=== PATIENT | male | born 1960 | race Caucasian/White ===

== ENCOUNTER 2020-12-29 12:30 | Outpatient (REF) | payer OTHER, SELFPAY ==
[2020-12-29 14:06] LABS: Alanine Aminotransferase 35 U/L (0-40); Anion Gap 14 (12-20); Blood Urea Nitrogen 15 mg/dL (9-16); Carbon Dioxide 28 mmol/L (22-29); Chloride 104 mmol/L (96-108); Estimated Glomerular Filt Rate > 60; Potassium 4.4 mmol/L (3.3-5.1); Sodium 142 mmol/L (135-145)
== END 2020-12-29 12:31 | disposition home or self-care (01) ==
LOC: HO.LAB 12:30
PROVIDERS: PCP Family Medicine; Visit Provider Family Medicine
DX: I10 Essential (primary) hypertension (principal); E78.00 Pure hypercholesterolemia, unspecified; Z79.899 Other long term (current) drug therapy
CPT/HCPCS: 36415; 80051; 82550; 82565; 84460; 84520

== ENCOUNTER 2021-04-25 08:25 | Day surgery (SDC) | payer OTHER, SELFPAY ==
[2021-04-18 12:39] VITALS: BMI 31.3
--- NOTE | 2021-04-24 12:10 | P.CONAN_ITS ---
Documented by User: Paula Crowley 04/24/21 12:12 HPI - Anesthesia Eval Consult details Narrative: 60yo M for Colonoscopy [facility] Past Medical History Medical History HLD (hyperlipidemia) HTN (hypertension) Renal stones Surgical History Surgical History (Updated 04/25/21 @ 09:57 by Zandra Manning) H/O colonoscopy H/O lithotripsy Social History Social History Patient Tobacco Use Status: Never used Tobacco Use of substances other than those prescribed or required for medical reasons: Yes Are you DNR?: No Advance Directives: No Advance Directives Information Provided: Yes Meds Allergies Allergy/AdvReac Type Severity Reaction Status Date / Time No Known Allergies Allergy Verified 04/25/21 09:09 Home Medications Medication Instructions Recorded Confirmed Last Taken Type atorvastatin 20 mg tablet 1 tab PO BEDTIME 04/25/21 04/25/21 Unknown History bisoprolol 10 1 tab PO DAILY 04/25/21 04/25/21 04/24/21 07:30 History mg-hydrochlorothiazide 6.25 mg tablet cetirizine 10 mg tablet 1 tab PO DAILY 04/25/21 04/25/21 Unknown History Exam Exam Date and Time: April 24, 2021 1210 Height,Weight and Vital Signs: Height 5 ft 7 in Weight 90.718 kg Pertinent Lab Results Pertinent Lab Results: Laboratory Tests 12/29/20 12:45 Sodium 142 Potassium 4.4 Chloride 104 Carbon Dioxide 28 BUN 15 Creatinine 0.86 Assessment and Plan Assessment Anesthesia Assessment: Chart Reviewed Documented by User: Zandra Manning 04/25/21 09:59 HPI - Anesthesia Eval Consult details Narrative: 60 yo male patient for colonoscopy [facility] Past Medical History Medical History HLD (hyperlipidemia) HTN (hypertension) Renal stones Family History Family history of problems with anesthesia: No Surgical History Surgical History (Updated 04/25/21 @ 09:57 by Zandra Manning) H/O colonoscopy H/O lithotripsy History of Problems with Anesthesia: No Social History Social History Patient Tobacco Use Status: Never used Tobacco Use of substances other than those prescribed or required for medical reasons: Yes Are you DNR?: No Advance Directives: No Advance Directives Information Provided: Yes Meds Allergies Allergy/AdvReac Type Severity Reaction Status Date / Time No Known Allergies Allergy Verified 04/25/21 09:09 Home Medications Medication Instructions Recorded Confirmed Last Taken Type atorvastatin 20 mg tablet 1 tab PO BEDTIME 04/25/21 04/25/21 Unknown History bisoprolol 10 1 tab PO DAILY 04/25/21 04/25/21 04/24/21 07:30 History mg-hydrochlorothiazide 6.25 mg tablet cetirizine 10 mg tablet 1 tab PO DAILY 04/25/21 04/25/21 Unknown History Exam Height,Weight and Vital Signs: Vital Signs Temp Pulse Resp BP Pulse Ox 04/25/21 09:11 98.3 F 57 16 140/72 H 97 Airway Mallampati Class: III Neck ROM: Full Loose/Missing/Broken Teeth: No Heart: RRR Lungs: CTAB Assessment and Plan Final Anesthetic Review NPO: Yes ASA Class: II Final Preanesthetic Review: No Changes in Pt Med Stat, Meds/Allgs Chart Reviewed, Consent Obtained/Reviewed and Anes Risks/Benef Reviewed Patient Risk: Low Procedure Risk: Low Anesthetic Plan Anesthetic Plan: MAC: Disposition: Standard PACU
[2021-04-25 09:11] VITALS: BP 140/72; PULSE 57; RESP 16; TEMP 36.8; O2SAT 97; BMI 30.4
[2021-04-25] MEDS: Lactated Ringers 1,000 ML 100 ML IVCONT (09:27)
[2021-04-25 11:41] VITALS: BP 102/60; PULSE 59; RESP 16; TEMP 37; O2SAT 98
--- NOTE | 2021-04-25 11:41 | P.BOP_ITS ---
Brief Operative Note Date of Service: 04/25/21 Pre-op diagnosis: Screening, Hx of adenomas Post-op diagnosis: other (Diverticulosis) Procedure: Colonoscopy to the cecum and TI Surgeon: Joaquin Vernon Was an Sandblast Or Shotblast Equipment Tender used for this Procedure?: No Estimated blood loss (mL): 0 Condition: stable Disposition: PACU
[2021-04-25 11:56] VITALS: BP 113/64; PULSE 51; RESP 17; TEMP 37; O2SAT 97
--- NOTE | 2021-04-25 12:13 | OP_ITS ---
SURGEON: Joaquin Vernon MD INDICATIONS: The patient presents for followup of personal history of tubular adenoma of the colon. Full consent has been obtained from him for this, including risks of bleeding and perforation. PREOPERATIVE DIAGNOSIS: POSTOPERATIVE DIAGNOSIS: PROCEDURE PERFORMED: Colonoscopy to cecum and terminal ileum. ESTIMATED BLOOD LOSS: COMPLICATIONS: ANESTHESIA: Monitored anesthesia care. ASSISTANTS: SPECIMENS: PREOPERATIVE DIAGNOSES: Colorectal cancer screening and personal history of tubular adenoma of the colon. POSTOPERATIVE DIAGNOSES: Colorectal cancer screening and personal history of tubular adenoma of the colon, diverticulosis and internal hemorrhoids. DESCRIPTION OF PROCEDURE: The patient was placed in the left lateral decubitus position. The digital rectal exam revealed no abnormalities. The Olympus video pediatric colonoscope was entered into the rectum and advanced easily to the cecum. Once in the cecum, I did identify normal-appearing cecal pouch with appendiceal orifice and a normal-appearing ileocecal valve. The terminal ileum was cannulated and appeared normal. The scope was withdrawn back in the colon. The entire cecum and ileocecal valve appeared normal. The scope was slowly withdrawn assessing all mucosal surfaces carefully. Preparation was excellent. I did not visualize any sign of polyps, colitis, nor angiodysplasia. There was a moderate amount of sigmoid diverticulosis. In the rectum, scope was retroflexed visualizing internal hemorrhoids, but no other pathology. The rectal mucosa appeared normal. The scope was straightened out and withdrawn from the patient. He tolerated the procedure well and was returned to the recovery area in stable condition. IMPRESSION: 1. Diverticulosis. 2. Internal hemorrhoids. PLAN: Given his previous history of tubular adenoma, I would recommend a followup colonoscopy in 5 years. He will otherwise see me on a p.r.n. basis. MD SUGAR Aguirre/COLT / [id number]
== END 2021-04-25 12:09 | disposition home or self-care (01) ==
PROVIDERS: PCP Family Medicine; Visit Provider Internal Medicine
PROC: 0DJD8ZZ Inspection of Lower Intestinal Tract, Via Natural or Artificial Opening Endoscopic (ICD-10-PCS; CPT 45378; principal; 2021-04-25 10:10)
DX: Z12.11 Encounter for screening for malignant neoplasm of colon (principal); Z86.010 Personal history of colon polyps; K57.30 Diverticulosis of large intestine without perforation or abscess without bleeding; I10 Essential (primary) hypertension; K64.8 Other hemorrhoids; E78.5 Hyperlipidemia, unspecified; Z79.82 Long term (current) use of aspirin; Z79.899 Other long term (current) drug therapy; Z87.442 Personal history of urinary calculi
CPT/HCPCS: 45378

== ENCOUNTER 2021-05-30 11:24 | Outpatient (REF) | payer OTHER, SELFPAY ==
[2021-05-30 14:20] LABS: Anion Gap 11 (12-20); Blood Urea Nitrogen 15 mg/dL (9-16); Carbon Dioxide 30 mmol/L (22-29); Chloride 104 mmol/L (96-108); Estimated Glomerular Filt Rate > 60; Potassium 4.6 mmol/L (3.3-5.1); Sodium 140 mmol/L (135-145)
== END 2021-05-30 11:25 | disposition home or self-care (01) ==
LOC: HO.10HDL 11:24
PROVIDERS: Internal Medicine; Visit Provider Family Medicine
DX: I10 Essential (primary) hypertension (principal)
CPT/HCPCS: 36415; 80051; 82565; 84520

== ENCOUNTER 2021-11-30 12:38 | Outpatient (REF) | payer OTHER, SELFPAY ==
[2021-11-30 12:49] LABS: MANUAL DIFF FLAG NO
[2021-11-30 13:18] LABS: Basophils Percent Auto 0.6 % (0-2); Eosinophils Absolute Auto 0.1 X10*3/uL (0.0-0.4); Eosinophils Percent Auto 2.5 % (0-4); Hematocrit 41.3 % (42.0-52.0); Hemoglobin 13.5 g/dl (14.0-18.0); Imm Gran Abs Auto 0.01 X10*3/uL (0.00-0.03); Imm Gran Pct Auto 0.2 % (0.0-0.4); Lymphocytes Percent Auto 21.7 % (20-40); Mean Corpuscular HGB Conc 32.7 g/dl (31.0-36.0); Mean Corpuscular Hemoglobin 29.9 pg (27.0-33.0); Mean Corpuscular Volume 91.4 fL (80.0-98.0); Mean Platelet Volume 10.2 fL (9.4-12.4); Monocytes Absolute Auto 0.5 X10*3/uL (0.1-1.2); Neutrophils Absolute Auto 3.1 x10*3/uL (2.0-8.3); Platelet Count 164 X10*3/uL (160-400); Red Blood Count 4.52 X10*6/uL (4.60-5.80); Red Cell Distribution Width 13.2 % (11.0-16.0); White Blood Count 4.7 X10*3/uL (4.8-10.8)
[2021-11-30 13:43] LABS: Alanine Aminotransferase 72 U/L (0-40)
[2021-11-30 14:04] LABS: Prostate Specific Antigen 0.74 ng/mL (<0.05-4.0)
[2021-11-30 14:06] LABS: Vitamin B12 340 pg/mL (200-900)
== END 2021-11-30 12:39 | disposition home or self-care (01) ==
LOC: HO.LAB 12:38
PROVIDERS: PCP Family Medicine; Visit Provider Family Medicine
DX: N40.0 Benign prostatic hyperplasia without lower urinary tract symptoms (principal); E78.00 Pure hypercholesterolemia, unspecified; D72.819 Decreased white blood cell count, unspecified; D64.9 Anemia, unspecified; Z12.5 Encounter for screening for malignant neoplasm of prostate; Z79.899 Other long term (current) drug therapy
CPT/HCPCS: 36415; 82550; 82607; 84153; 84460; 85025

== ENCOUNTER 2022-02-28 11:40 | Outpatient (REF) | payer OTHER, SELFPAY ==
[2022-02-28 13:19] LABS: Alanine Aminotransferase 25 U/L (0-40); Anion Gap 12 (12-20); Aspartate Amino Transferase 22 U/L (5-37); Blood Urea Nitrogen 10 mg/dL (9-16); Carbon Dioxide 26 mmol/L (22-29); Chloride 105 mmol/L (96-108); Estimated Glomerular Filt Rate > 60; Potassium 4.3 mmol/L (3.3-5.1); Sodium 139 mmol/L (135-145)
== END 2022-02-28 11:41 | disposition home or self-care (01) ==
LOC: HO.LAB 11:40
PROVIDERS: PCP Family Medicine; Visit Provider Family Medicine
DX: I10 Essential (primary) hypertension (principal); R79.89 Other specified abnormal findings of blood chemistry
CPT/HCPCS: 36415; 80051; 82565; 84450; 84460; 84520

== ENCOUNTER 2022-08-01 13:19 | Outpatient (REF) | payer OTHER, SELFPAY ==
[2022-08-01 14:37] LABS: Alanine Aminotransferase 27 U/L (0-40); Anion Gap 15 (12-20); Blood Urea Nitrogen 18 mg/dL (9-16); Carbon Dioxide 27 mmol/L (22-29); Chloride 104 mmol/L (96-108); Estimated Glomerular Filt Rate > 60; Potassium 4.5 mmol/L (3.3-5.1); Sodium 141 mmol/L (135-145)
== END 2022-08-01 13:20 | disposition home or self-care (01) ==
LOC: HO.LAB 13:19
PROVIDERS: PCP Family Medicine; Visit Provider Family Medicine
DX: I10 Essential (primary) hypertension (principal); E78.00 Pure hypercholesterolemia, unspecified; Z79.899 Other long term (current) drug therapy
CPT/HCPCS: 36415; 80051; 82550; 82565; 84460; 84520

== ENCOUNTER 2023-05-23 09:28 | Outpatient (REF) | payer OTHER, SELFPAY ==
[2023-05-23 09:41] LABS: MANUAL DIFF FLAG NO
[2023-05-23 10:02] LABS: Basophils Percent Auto 0.7 % (0-2); Eosinophils Absolute Auto 0.2 X10*3/uL (0.0-0.4); Eosinophils Percent Auto 3.9 % (0-4); Hematocrit 40.2 % (42.0-52.0); Hemoglobin 13.5 g/dl (14.0-18.0); Imm Gran Abs Auto 0.01 X10*3/uL (0.00-0.03); Imm Gran Pct Auto 0.2 % (0.0-0.4); Lymphocytes Absolute Auto 1.2 X10*3/uL (1.2-4.9); Lymphocytes Percent Auto 26.7 % (20-40); Mean Corpuscular HGB Conc 33.6 g/dl (31.0-36.0); Mean Corpuscular Hemoglobin 29.9 pg (27.0-33.0); Mean Corpuscular Volume 89.1 fL (80.0-98.0); Mean Platelet Volume 10.2 fL (9.4-12.4); Monocytes Absolute Auto 0.4 X10*3/uL (0.1-1.2); Monocytes Percent Auto 9.1 % (2-11); Neutrophils Absolute Auto 2.6 x10*3/uL (2.0-8.3); Neutrophils Percent Auto 59.4 % (45-73); Platelet Count 169 X10*3/uL (160-400); Red Blood Count 4.51 X10*6/uL (4.60-5.80); Red Cell Distribution Width 13.2 % (11.0-16.0); White Blood Count 4.4 X10*3/uL (4.8-10.8)
[2023-05-23 10:58] LABS: Alanine Aminotransferase 24 U/L (0-40); Anion Gap 12 (12-20); Blood Urea Nitrogen 13 mg/dL (9-16); Carbon Dioxide 28 mmol/L (22-29); Chloride 107 mmol/L (96-108); Cholesterol 160 mg/dL (<200); Estimated Glomerular Filt Rate > 60; HDL Cholesterol 41 mg/dL (>40); LDL Cholesterol Calculated 99 mg/dL (<100); Potassium 4.7 mmol/L (3.3-5.1); Sodium 142 mmol/L (135-145); Triglycerides 104 mg/dL (<150)
[2023-05-23 12:34] LABS: Estimated Average Glucose 105 mg/dL; Hemoglobin A1c % 5.3 % (<6.0)
[2023-05-23 14:27] LABS: Glucose Fasting 108 mg/dL (60-99)
== END 2023-05-23 09:29 | disposition home or self-care (01) ==
LOC: HO.LAB 09:28
PROVIDERS: PCP Family Medicine; Visit Provider Family Medicine
DX: I10 Essential (primary) hypertension (principal); E78.00 Pure hypercholesterolemia, unspecified; D72.819 Decreased white blood cell count, unspecified; Z79.899 Other long term (current) drug therapy
CPT/HCPCS: 36415; 80051; 80061; 82550; 82565; 82947; 83036; 84460; 84520; 85025

== ENCOUNTER 2024-02-13 11:31 | Outpatient (REF) | payer MEDICARE, SELFPAY ==
--- NOTE | ~2024-02-13 | US_ITS ---
EXAMINATION: US RETROPERITONEAL COMPLETE (RENAL) CLINICAL INFORMATION: Rule out recurrent kidney stone. COMPARISON: Ultrasound urinary bladder and renal bilateral 10/17/2011. TECHNIQUE: Real-time imaging of the kidneys and bladder. FINDINGS: RIGHT KIDNEY: 11.6 x 5.3 x 5.0 cm (SAG x AP x TRV). The kidney is normal in size, contour, and echogenicity. Renal cortical thickness is normal. No calculi or focal parenchymal lesions. No hydronephrosis. Small nonspecific perinephric fluid collection. LEFT KIDNEY: 11.3 x 5.9 x 5.5 cm (SAG x AP x TRV). The kidney is normal in size, contour, and echogenicity. Renal cortical thickness is normal. No focal parenchymal lesions or hydronephrosis. 3 mm nonobstructing calculus in the lower pole. BLADDER: Well distended and normal. Bilateral ureteral jets are demonstrated. Prevoid bladder volume is 203 mL. Postvoid bladder volume is 14 mL. US/US retroperitoneal comp IMPRESSION: Small nonspecific right perinephric fluid collection. This could be chronic sequela of the previously seen large perinephric hematoma in 2011. 3 mm nonobstructing calculus in the left lower kidney.
[2024-02-13 12:02] LABS: MANUAL DIFF FLAG NO
[2024-02-13 12:54] LABS: Basophils Percent Auto 0.8 % (0-2); Eosinophils Absolute Auto 0.2 X10*3/uL (0.0-0.4); Eosinophils Percent Auto 3.1 % (0-4); Hematocrit 40.1 % (42.0-52.0); Hemoglobin 13.4 g/dl (14.0-18.0); Imm Gran Abs Auto 0.01 X10*3/uL (0.00-0.03); Imm Gran Pct Auto 0.2 % (0.0-0.4); Lymphocytes Absolute Auto 1.3 X10*3/uL (1.2-4.9); Lymphocytes Percent Auto 27.3 % (20-40); Mean Corpuscular HGB Conc 33.4 g/dl (31.0-36.0); Mean Corpuscular Volume 89.9 fL (80.0-98.0); Mean Platelet Volume 10.3 fL (9.4-12.4); Monocytes Absolute Auto 0.5 X10*3/uL (0.1-1.2); Monocytes Percent Auto 10.9 % (2-11); Neutrophils Absolute Auto 2.8 x10*3/uL (2.0-8.3); Neutrophils Percent Auto 57.7 % (45-73); Platelet Count 196 X10*3/uL (160-400); Red Blood Count 4.46 X10*6/uL (4.60-5.80); Red Cell Distribution Width 13.2 % (11.0-16.0); White Blood Count 4.9 X10*3/uL (4.8-10.8)
[2024-02-13 13:31] LABS: Alanine Aminotransferase 27 U/L (0-40); Anion Gap 12 (12-20); Aspartate Amino Transferase 21 U/L (5-37); Blood Urea Nitrogen 13 mg/dL (9-16); Carbon Dioxide 29 mmol/L (22-29); Chloride 104 mmol/L (96-108); Estimated Glomerular Filt Rate > 60; Potassium 4.2 mmol/L (3.3-5.1); Sodium 141 mmol/L (135-145)
== END 2024-02-13 11:32 | disposition home or self-care (01) ==
LOC: HO.US 11:31
PROVIDERS: PCP Family Medicine; Visit Provider Family Medicine
DX: N20.0 Calculus of kidney (principal); I10 Essential (primary) hypertension; E78.00 Pure hypercholesterolemia, unspecified; D72.819 Decreased white blood cell count, unspecified
CPT/HCPCS: 36415; 76770; 80051; 82550; 82565; 84450; 84460; 84520; 85025

== ENCOUNTER 2024-07-23 10:45 | Outpatient (REF) | payer MEDICARE, SELFPAY ==
[2024-07-23 13:46] LABS: Alanine Aminotransferase 36 U/L (0-40); Anion Gap 12 (12-20); Aspartate Amino Transferase 33 U/L (5-37); Blood Urea Nitrogen 14 mg/dL (9-16); Carbon Dioxide 29 mmol/L (22-29); Chloride 104 mmol/L (96-108); Cholesterol 186 mg/dL (<200); Estimated Glomerular Filt Rate > 60; Glucose Fasting 100 mg/dL (60-99); HDL Cholesterol 61 mg/dL (>40); LDL Cholesterol Calculated 108 mg/dL (<100); Potassium 4.3 mmol/L (3.3-5.1); Sodium 141 mmol/L (135-145); Triglycerides 86 mg/dL (<150)
== END 2024-07-23 10:46 | disposition home or self-care (01) ==
LOC: HO.10HDL 10:45
PROVIDERS: Visit Provider Family Medicine
DX: I10 Essential (primary) hypertension (principal); E78.00 Pure hypercholesterolemia, unspecified; Z79.899 Other long term (current) drug therapy; Z82.49 Family history of ischemic heart disease and other diseases of the circulatory system
CPT/HCPCS: 36415; 80051; 80061; 82550; 82565; 82947; 84450; 84460; 84520

== ENCOUNTER 2025-02-16 11:55 | Outpatient (REF) | payer MEDICARE, SELFPAY ==
--- OUTSIDE RECORDS SUMMARY | 2025-02-16 13:01 | XMS_ITS | Patient Health Record ---
Author Organization [facility] Address [address] [place] [address] Care Team Providers Care Medical Records Specialist Name Role Phone Dimas MIGUEL, Nicolas Primary Care Provider Joaquin Syed Unavailable [phone] Allergies No Known Allergies Reason For Referral No Information Medications Medication SIG (Take, Route, Frequency, Duration) Notes Start Date End Date Status Ziac 5/6.25MG Active Aspirin Adult Low Dose 81 MG 1 tablet Orally Once a day for 30 day(s) Active Cetirizine HCl 10 MG 1 tablet Orally Onc e a day for 30 day(s) Active Multi Vitamin/Minerals Active Atorvastatin Calcium 20 MG 1 tablet Oral ly Once a day for 30 day(s) Active Immunizations Vaccine Route Administration Date Status Comme nts Influenza Unknown 06/29/2020 Administered Social History Alcohol Screen Question Answer Notes Did you have a drink containing alcohol in the p ast year? No Points 0 Interpretation Negative Section Notes: Nonsmoker; no alcohol Nonsmoker; no alcohol Problems Problem Type SNOMED Code ICD Code Onset Dates Problem Status W/U Status Risk Notes Problem 534448083 Encounter for screening for malignant neoplasm of colon (Z12.11) Active confirmed Problem History of polyp of colon (situation) (153716418) Personal history of colonic polyps (Z86.010) Active confirmed Problem Diverticulosis o f large intestine without perforation or abscess without bleeding (K57.30) Active confirmed Problem 012574833617077 Preprocedural examination (Z01.818) Active confirmed Problem 902714989 Hx of adenomatou s colonic polyps (Z86.010) Active confirmed Plan Of Treatment Future Test Test Name Order Date COLONOSCOPY 01/14/2012 COLONOSCOPY 04/03/2021 Insurance Providers Payer Name Payer Address Payer Phone Subscriber Number Group Number Insured Name Patient Relationship to Insured Coverage Start Date Coverage End Date [facility] [address] [place] [phone] [id number] LEA NAVAS Self - patient is the insured Medical (General) History Medical History History ICD Code Kidney stones-ESWL Hyperlipidemia HTN Denies AL,DM,CVA,Lung disease,renal dise ase Colonoscopy 12/2011 with 2 tubular adenom as removed Surgical History Surgery Date(Month/Year)
[2025-02-16 14:44] LABS: Alanine Aminotransferase 33 U/L (0-40); Anion Gap 10 (12-20); Aspartate Amino Transferase 28 U/L (5-37); Blood Urea Nitrogen 13 mg/dL (9-16); Carbon Dioxide 29 mmol/L (22-29); Chloride 105 mmol/L (96-108); Estimated Glomerular Filt Rate > 60; Potassium 4.2 mmol/L (3.3-5.1); Sodium 140 mmol/L (135-145)
== END 2025-02-16 11:56 | disposition home or self-care (01) ==
LOC: HO.10HDL 11:55
PROVIDERS: Visit Provider Family Medicine
DX: I10 Essential (primary) hypertension (principal); E78.00 Pure hypercholesterolemia, unspecified; Z79.899 Other long term (current) drug therapy
CPT/HCPCS: 36415; 80051; 82550; 82565; 84450; 84460; 84520

== ENCOUNTER 2025-06-24 13:57 | Outpatient (AMB) | payer MEDICARE, SELFPAY ==
--- NOTE | 2025-06-24 11:50 | MHC.PC.OV ---
Vital Signs 06/24/25 14:01 Height 5 ft 7 in Weight 92.533 kg BMI 31.9 BP 128/74 Blood Pressure Location Lt brachial Position Sitting Pulse 52 Pulse Source Pulse Oximeter Temp 97.6 F Temp Source Temporal Artery Scan Pulse Oximetry (%) 97 Oxygen Delivery Method Room Air Intake Visit Reasons: 4 MONTH FOLLOW UP-KEYLA PT Final Assembly Inspector Required: No Accompanied by: Self / Same As Patient Allergies No Known Allergies Allergy (Verified 06/24/25 11:51) Medication List - Last Reconciled 06/24/25 by KUMAR Yepez atorvastatin 1 tab PO BEDTIME betamethasone valerate 0.1% 1 appl topical BID PRN bisoprolol-hydrochlorothiazide 10-6.25 mg 1 tab PO DAILY cetirizine 1 tab PO DAILY famotidine 40 mg PO DAILY Tobacco use date assessed: 06/24/25 Fall risk assessment: No Falls in past year Last assessed Fall Risk: 06/24/25 Dental Screening Dental Screen Date: 06/24/25 Did you have a dental visit in the last 12 months?: Yes Did you have a dental problem in the last 6 months where you did not have access to dental care?: No HPI HPI Comments History of Present Illness Details 64-year-old male with history of hypertension, hypercholesterolemia, GERD, venous insufficiency, nephrolithiasis presenting to the office today for management of chronic conditions and to establish care. Hyperlipidemia-on atorvastatin. Last LDL 108 Hypertension-on bisoprolol-hydrochlorothiazide 10-6.25 mg daily. Blood pressure 128/74 GERD-famotidine Nephrolithiasis- s/p litho. H/o sepsis with nephrolithiasis Obesity-BMI 32- exercising with pickleball and golf. Concerns: Psoriasis- R extensor surface elbow/forearm. Itchy Spasm/tightening when bending forward. Standing helps Health maintenance: Last colonoscopy 03/2021, 5 year follow up, Dr. Vernon Due for PSA ROS: General: No fevers, malaise, unintentional weight loss HEENT: No blurred vision, diplopia. No sore throat, nasal congestion, rhinorrhea, sinus pain, ear pain Cardiovascular: No chest pain, palpitations, or leg edema Respiratory: No shortness of breath, wheezing, cough GI: No abdominal pain, nausea, vomiting, diarrhea, constipation, melena, hematochezia : No dysuria, hematuria, increased urinary frequency, decreased urinary output MSK: No myalgia, back pain. see hpi Neuro: No headaches, weakness, paresthesias Skin: See HPI EXAM: Constitutional - Awake and Alert, No apparent distress Eyes - PERRL Cardiovascular - S1S2, RRR, No edema Respiratory - Normal lung expansion, Normal respiratory effort, No respiratory distress, CTA bilaterally Extremities - no calf tenderness bilaterally, no swelling Skin - Warm/Dry . Erythematous lesion on the right elbow and volar aspect of the right forearm with some scaling Neurological - Alert & oriented x3 Psychological - Appropriate [facility] Medical History (Updated 06/24/25 @ 14:41 by KUMAR Yepez) Psoriasis GERD (gastroesophageal reflux disease) Renal stones HTN (hypertension) HLD (hyperlipidemia) Surgical History H/O colonoscopy H/O lithotripsy Family History (Updated 06/24/25 @ 14:06 by Emily Jones MA) Mother No problems noted. Father No problems noted. Social History Housing: House Patient Tobacco Use Status: Never used Tobacco e-Cigarette/Vaping Use: Never Used service: No Current occupational status: retired Cognitive needs: No Hearing needs: No Vision needs: Yes (rx glasses) Questionnaire PHQ-9 Over the last 2 weeks, how often have you been bothered by any of the following problems? 1. Little interest or pleasure in doing things: not at all 2. Feeling down, depressed, or hopeless: not at all 3. Trouble falling or staying asleep, or sleeping too much: not at all 4. Feeling tired or having little energy: not at all 5. Poor appetite or overeating: not at all 6. Feeling bad about yourself - or that you are a failure or have let yourself or your family down: not at all 7. Trouble concentrating on things, such as reading the newspaper or watching television: not at all 8. Moving or speaking so slowly that other people could have noticed. Or the opposite - being so fidgety or restless that you have been moving around a lot more than usual: not at all 9. Thoughts that you would be better off or of hurting yourself in some way: not at all Total score: 0 Source: Developed by Drs. Joaquin Villalobos, Fam Villalba and colleagues, with an educational flor from [employer]. Thrive Questionnaire Date Thrive assessed: 06/24/25 I am a: Patient Within the past 12 months, did the food you bought not last and you didn't have the money to get more?: Never true Within the past 12 months, did you worry whether your food would run out before you got money to buy more?: Never true Do you have trouble paying for medicines?: No Do you have trouble getting transportation to medical appointments?: No Do you have trouble paying your heating and electricity bill?: No Do you have trouble taking care of your child, family member or friend?: No Do you have trouble with day-to-day activities such as bathing, preparing meals, shopping, managing finances, etc.?: No Are you currently unemployed and looking for a job?: No Are you interested in more education?: No THRIVE Score: 0 AUDIT C Alcohol Use Questionnaire (AUDIT-C) 1. How often do you have a drink containing alcohol?: Monthly or less 2. How many drinks containing alcohol do you have on a typical day when you are drinking?: 1 or 2 3. How often do you have six or more drinks on one occasion?: Less than monthly Total Score: 2 HERMILA-7 AMB Questionnaire HERMILA-7 Date HERMILA - 7 assessed: 06/24/25 Feeling nervous, anxious, or on edge: 0 = Not at all Not being able to stop or control worryin = Not at all Worrying too much about different things: 0 = Not at all Trouble relaxin = Not at all Being so restless that it is hard to sit still: 0 = Not at all Becoming easily annoyed or irritable: 0 = Not at all Feeling afraid as if something awful might happen: 0 = Not at all Total HERMILA-7 score (0-4 normal; 5-9 mild; 10-14 moderate; 15-21 severe): 0 Source: Developed by Drs. Joaquin Villalobos, Fam Villalba and colleagues, with an educational flor from [employer]. Physical exam (Primary Care) Vital Signs: Last Vital Signs Temp 97.6 F 06/24/25 14:01 Pulse 52 06/24/25 14:01 BP 128/74 06/24/25 14:01 Pulse Ox 97 06/24/25 14:01 Oxygen Delivery Method Room Air 06/24/25 14:01 BMI result Body Mass Index 31.9 Tobacco/Smoking Status: Tobacco use Status Tobacco use date assessed 06/24/25 06/24/25 11:52 Patient Tobacco Use Status Never used Tobacco 06/24/25 11:52 e-Cigarette/Vaping Use Never Used 06/24/25 11:52 PHQ-9: PHQ-9 Score PHQ-9: Total score 0 06/24/25 14:30 Thrive Assessment: Date of Thrive Assessment Date Thrive assessed 06/24/25 06/24/25 11:52 Coding Level of Care Code New Pt Level 4 (41398) Complex EM visit Add On G2211 Diagnoses HTN (hypertension) I10 HLD (hyperlipidemia) E78.5 GERD (gastroesophageal reflux disease) K21.9 Psoriasis L40.9 Spasm of diaphragm R06.6 Assessment & Plan Assessment & Plan (1) HTN (hypertension): Code(s): I10 - Essential (primary) hypertension Category: Medical Plan: Controlled. Continue current therapies (2) HLD (hyperlipidemia): Code(s): E78.5 - Hyperlipidemia, unspecified Category: Medical Plan: Lipid panel ordered. Continue atorvastatin (3) GERD (gastroesophageal reflux disease): Code(s): K21.9 - Gastro-esophageal reflux disease without esophagitis Category: Medical Plan: Continue famotidine (4) Psoriasis: Code(s): L40.9 - Psoriasis, unspecified Category: Medical Plan: Betamethasone prescribed. refer to dermatology for skin check and evaluation of psoriasis (5) Spasm of diaphragm: Code(s): R06.6 - Hiccough Category: Medical Plan: X-ray of the chest negative for any hiatal hernia. Suspect the spasm in the right upper quadrant is a diaphragmatic spasm. Given there is quick resolution, recommend continuing with standing up straight. Should symptoms exacerbate. Can consider referral Orders: Orders Basic Metabolic Panel Today E78.5 - Hyperlipidemia, unspecified, I10 - Essential (primary) hypertension, K21.9 - Gastro-esophageal reflux disease without esophagitis Hemoglobin A1c Today E78.5 - Hyperlipidemia, unspecified, I10 - Essential (primary) hypertension, K21.9 - Gastro-esophageal reflux disease without esophagitis Lipid Panel Today E78.5 - Hyperlipidemia, unspecified, I10 - Essential (primary) hypertension, K21.9 - Gastro-esophageal reflux disease without esophagitis Prostate Specific Antigen Today E78.5 - Hyperlipidemia, unspecified, I10 - Essential (primary) hypertension, K21.9 - Gastro-esophageal reflux disease without esophagitis XR chest 2V Today R07.89 - Other chest pain Liver Panel Today E78.5 - Hyperlipidemia, unspecified, I10 - Essential (primary) hypertension, K21.9 - Gastro-esophageal reflux disease without esophagitis Referrals Dermatology Referral L40.9 - Psoriasis, unspecified, Z12.83 - Encounter for screening for malignant neoplasm of skin Medications: New betamethasone valerate 0.1% 1 appl topical BID PRN 45 grams 1RF skin irritation
[2025-06-24 14:01] VITALS: BP 128/74; PULSE 52; TEMP 36.4; O2SAT 97; BMI 31.9
--- OUTSIDE RECORDS SUMMARY | 2025-06-24 15:06 | XMS_ITS | Patient Health Record ---
Author Organization [facility] Address [address] [place] [address] Care Team Providers Care Joint Cutter Machine Name Role Phone Dimas (RETIRED) Nicolas MIGUEL Primary Care Provider Unavailable Joaquin Vernon Unavailable [phone] Allergies No Known Allergies Reason For Referral [...] Problem Status W/U Status Risk Notes Problem 979748170 Encounter for screening for malignant neoplasm of colon (Z12.11) Active confirmed Problem History of polyp of colon (situation) (774057417) Personal history of colonic polyps (Z86.010) Active confirmed Problem Diverticular disease of colon (185012096) Diverticulosis of large intestine without perforation or abscess without bleeding (K57.30) Active confirmed Problem 623185253090263 Preprocedural examination (Z01.818) Active confirmed Problem 384067934 Hx of adenomatou s colonic polyps (Z86.010) Active confirmed Plan Of Treatment Future Test Test Name Order Date COLONOSCOPY 01/14/2012 COLONOSCOPY 04/03/2021 Insurance Providers Payer Name Payer Address Payer Phone Subscriber Number Group Number Insured Name Patient Relationship to Insured Coverage Start Date Coverage End Date [facility] [address] [facility] [place] [place] [phone] [id number] LEA NAVAS Self - patient is the insured Medical (General) History Medical History History ICD Code Kidney stones-ESWL Hyperlipidemia HTN Denies CO,DM,CVA,Lung disease,renal dise ase Colonoscopy 12/2011 with 2 tubular adenom as removed Surgical History Surgery Date(Month/Year)
== END 2025-06-24 14:49 | disposition home or self-care (01) ==
LOC: HO.HMCHD 13:58
PROVIDERS: PCP Family Medicine; Visit Provider Physician Assistant
DX: I10 Essential (primary) hypertension (principal); E78.5 Hyperlipidemia, unspecified; K21.9 Gastro-esophageal reflux disease without esophagitis; L40.9 Psoriasis, unspecified; R06.6 Hiccough

== ENCOUNTER 2025-06-24 13:57 | Outpatient (REF) | payer MEDICARE, SELFPAY ==
--- NOTE | ~2025-06-24 | XR_ITS ---
EXAMINATION: XR CHEST 2 VIEWS HISTORY: R07.89 - Other chest pain COMPARISON: There are no prior studies available for comparison. FINDINGS: PA and lateral views of the chest are submitted. The lungs are expanded and clear. There is no pleural effusion, pneumothorax, or pulmonary vascular congestion. The heart is normal in size. There is mild degenerative disc disease of the spine. XR/XR chest 2V IMPRESSION: Clear lungs. Electronically signed by: Joaquin Lance MD 06/24/2025 03:28 PM EDT
[2025-06-24 16:04] LABS: Alanine Aminotransferase 42 U/L (0-40); Albumin Level 4.6 g/dL (3.5-5.0); Alkaline Phosphatase 54 U/L (39-117); Anion Gap 11 (12-20); Aspartate Amino Transferase 28 U/L (5-37); Blood Urea Nitrogen 14 mg/dL (9-16); Calcium 10.1 mg/dL (8.4-10.2); Carbon Dioxide 30 mmol/L (22-29); Chloride 107 mmol/L (96-108); Cholesterol 163 mg/dL (<200); Estimated Glomerular Filt Rate > 60; HDL Cholesterol 46 mg/dL (>40); Potassium 4.5 mmol/L (3.3-5.1); Sodium 143 mmol/L (135-145); Total Protein 7.1 g/dL (6.5-8.0); Triglycerides 200 mg/dL (<150)
[2025-06-24 16:25] LABS: Prostate Specific Antigen 1.25 ng/mL (<0.05-4.0)
== END 2025-06-24 13:58 | disposition home or self-care (01) ==
LOC: HO.XRAY 13:57
PROVIDERS: PCP Physician Assistant; Visit Provider Physician Assistant
DX: Z12.5 Encounter for screening for malignant neoplasm of prostate (principal); Z13.1 Encounter for screening for diabetes mellitus; R07.89 Other chest pain; I10 Essential (primary) hypertension; E78.5 Hyperlipidemia, unspecified; K21.9 Gastro-esophageal reflux disease without esophagitis; L40.9 Psoriasis, unspecified; R06.6 Hiccough
CPT/HCPCS: 36415; 71046; 80048; 80061; 80076; 83036; 84153; 99202

== ENCOUNTER → 2025-06-24 15:11 | Outpatient (BNV) | payer MEDICARE, SELFPAY | PROVIDERS: PCP Physician Assistant; Visit Provider Radiology Diagnostic Radiology | DX: R07.89 Other chest pain (principal) | CPT/HCPCS: 71046 ==